=== PATIENT | male | born 1995 | race Asian ===

== ENCOUNTER 2017-07-21 07:48 | Emergency (ER) | payer SELFPAY ==
[2017-07-21] MEDS ORDERED: SUCCINYLCHOLINE CHLORIDE 200 MG/10 ML SYR IVP ONE (08:14)
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
[2017-07-21 08:35] VITALS: TEMP 67.3
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
== END 2017-07-21 09:45 | disposition expired ==
LOC: EDBD 07:48
DX: S09.90XA Unspecified injury of head, initial encounter (principal); T75.1XXA Unspecified effects of drowning and nonfatal submersion, initial encounter; T68.XXXA Hypothermia, initial encounter; I46.9 Cardiac arrest, cause unspecified; R06.81 Apnea, not elsewhere classified; X31.XXXA Exposure to excessive natural cold, initial encounter; X58.XXXA Exposure to other specified factors, initial encounter; Y99.8 Other external cause status
CPT/HCPCS: J0330